=== PATIENT | female | born 1945 | race American Indian/Alaskan Native ===

== ENCOUNTER 2017-09-19 17:11 | Emergency (ER) | payer BC ==
[2017-09-19 17:11] VITALS: BMI 36.7
[2017-09-19 17:34] VITALS: BP 120/78; PULSE 72; RESP 20; TEMP 97.6; O2SAT 98
--- NOTE | 2017-09-19 17:55 | C.PDOC ---
History Of Present Illness 72-year-old female, presents to the emergency department with complaints of right ankle pain after she fell and twisted her ankle at 07:40 his morning. Patient has been walking on it and took left over Tramadol, but pain has persisted, resulting in her coming to the ED for evaluation. No numbness/ weakness, Time Seen by Provider: 09/19/17 17:48 Chief Complaint (Nursing): Lower Extremity Problem/Injury History Per: Patient History/Exam Limitations: no limitations Past Medical History Reviewed: Historical Data, Nursing Documentation, Vital Signs Vital Signs: Last Vital Signs Temp 97.6 F 09/19/17 17:32 Pulse 72 09/19/17 17:32 Resp 20 09/19/17 17:32 BP 120/78 09/19/17 17:32 Pulse Ox 98 09/24/17 18:47 - Medical History PMH: HTN Family History: States: Other Other Family History: nc - Social History Hx Alcohol Use: No Hx Substance Use: No - Immunization History Hx Tetanus Toxoid Vaccination: No Hx Influenza Vaccination: No Hx Pneumococcal Vaccination: No Review Of Systems Musculoskeletal: Positive for: Foot Pain (right ankle) Neurological: Negative for: Weakness, Numbness Physical Exam - Physical Exam Appears: Non-toxic, No Acute Distress Skin: Warm, Dry, No Rash Eye(s): bilateral: Normal Inspection, PERRL Extremity: Tenderness (lat mal), Capillary Refill (<2 seconds), No Deformity, Other (R foot: lateral malleolus swelling. Range of motion normal. Pain with flexion) Pulses: Left Dorsalis Pedis: Normal, Right Dorsalis Pedis: Normal Neurological/Psych: Oriented x3, Normal Motor, Normal Sensation, Other (no focal deficits) ED Course And Treatment O2 Sat by Pulse Oximetry: 98 Medical Decision Making Medical Decision Making: xr r ankle- no acute fracture air splint placed ortho follow up Disposition - Disposition Referrals: Mili Bernardo MD [Staff Provider] - Disposition: HOME/ ROUTINE Disposition Time: 18:48 Condition: STABLE Additional Instructions: Please follow up with the retail support specialist. Do not bear any weight on the right leg for two days then attempt to bear weight as tolerated. Take ibuprofen as directed for pain/swelling. Return to the ER for any worsening symptoms or for any other concerns. Prescriptions: Acetaminophen [Tylenol Extra Strength] 1,000 mg PO Q6H PRN #10 tablet PRN Reason: Pain, Moderate (4-7) Instructions: Ankle Sprain (ED) Forms: General Discharge Instructions, [facility] (Danish), Work Excuse - Clinical Impression Clinical Impression: Ankle sprain - Scribe Statement The provider has reviewed the documentation as recorded by the Scribe (Rosio Bernardo) All medical record entries made by the Scribe were at my direction and personally dictated by me. I have reviewed the chart and agree that the record accurately reflects my personal performance of the history, physical exam, medical decision making, and the department course for this patient. I have also personally directed, reviewed, and agree with the discharge instructions and disposition.
--- NOTE | 2017-09-20 08:55 | RAD ---
PROCEDURE: Right Ankle Radiographs. HISTORY: twisted, pain COMPARISON: None FINDINGS: BONES: No acute fracture. JOINTS: Ankle mortise maintained. Talar dome intact SOFT TISSUES: Lateral malleolar soft tissue swelling. OTHER FINDINGS: Achilles enthesophyte. Inferior plantar calcaneal spur. IMPRESSION: Lateral malleolar soft tissue swelling without demonstrated fracture or dislocation.
== END 2017-09-19 18:47 | disposition home or self-care (01) ==
LOC: C.ER 17:11
DX: S93.401A Sprain of unspecified ligament of right ankle, initial encounter (principal); W01.0XXA Fall on same level from slipping, tripping and stumbling without subsequent striking against object, initial encounter; Y92.89 Other specified places as the place of occurrence of the external cause